=== PATIENT | male | born 1940 | race Caucasian/White ===

== ENCOUNTER 2020-10-13 12:03 | Observation (INO) ==
[2020-10-13] MEDS ORDERED: NS 0.9% 1000 ml BAG 1,000 ML IV ONE ×2 (13:49→15:55)
[2020-10-13 13:53] LABS: ABS Basophils 0.1 10^3/ul (0-0.2); ABS Eosinophils 0.1 10^3/ul (0-0.6); ABS Lymphocytes 1.1 10^3/ul (1.0-4.8); ABS Monocytes 0.9 10^3/ul (0-0.8); ABS Neutrophils 10.4 10^3/ul (1.5-7.7); Eosinophil % 0.8 %; Hematocrit 37 % (42-52); Hemoglobin 12.5 g/dL (14.0-18.0); Mean Corpuscular HGB Conc 33 g/dL (31-36); Mean Corpuscular Hemoglobin 32 pg (27-31); Mean Corpuscular Volume 95 fL (80-94); Mean Platelet Volume 10.4 fL (7.4-10.4); Platelet Count 232 10^3/uL (150-450); Red Blood Count 3.94 10^6 /uL (4.18-5.48); Red Cell Distribution Width 13 % (10-15); White Blood Count 12.7 10^3/uL (3.5-10.8)
[2020-10-13 14:05] LABS: INR 1.1 (0.82-1.09)
[2020-10-13 14:10] LABS: ALT 10 U/L (7-52); AST 13 U/L (13-39); Albumin 3.9 g/dL (3.2-5.2); Albumin/Globulin Ratio 1.6 (1-3); Alkaline Phosphatase 57 U/L (34-104); Anion Gap 8 mmol/L (2-11); BUN/Creatinine Ratio 10.9 (8-20); Blood Urea Nitrogen 18 mg/dL (6-24); CO2 Carbon Dioxide 29 mmol/L (22-32); Calcium 9.7 mg/dL (8.6-10.3); Chloride 103 mmol/L (101-111); EGFR African American 48.9 (>60); EGFR Non-African American 40.4 (>60); Globulin 2.5 g/dL (2-4); Glucose 176 mg/dL (70-100); Potassium 3.9 mmol/L (3.5-5.0); Sodium 140 mmol/L (135-145); Total Protein 6.4 g/dL (6.4-8.9)
[2020-10-13 15:25] LABS: C Reactive Protein < 1.00 mg/L (<8.01)
[2020-10-13] MEDS ORDERED: Piperacillin/Tazobac ADVAN 3.375 GM in NS 0.9% 100 ml BAG 100 ML IV ONE (15:57)
[2020-10-13 17:44] LABS: ABS Lymphocytes 0.8 10^3/ul (1.0-4.8); ABS Monocytes 0.6 10^3/ul (0-0.8); ABS Neutrophils 10.2 10^3/ul (1.5-7.7); Eosinophil % 0.1 %; Hematocrit 37 % (42-52); Hemoglobin 12.3 g/dL (14.0-18.0); Lymphocyte % 6.7 %; Mean Corpuscular HGB Conc 34 g/dL (31-36); Mean Corpuscular Hemoglobin 32 pg (27-31); Mean Corpuscular Volume 95 fL (80-94); Mean Platelet Volume 10.2 fL (7.4-10.4); Platelet Count 203 10^3/uL (150-450); Red Blood Count 3.86 10^6 /uL (4.18-5.48); Red Cell Distribution Width 13 % (10-15); White Blood Count 11.7 10^3/uL (3.5-10.8)
[2020-10-13] MEDS ORDERED: Piperacillin/Tazobac 3.375 GM BAG ONE (17:45)
[2020-10-13] MEDS ORDERED: Calcium Carb (TUMS) 500 mg CHEW TAB PO ONE (18:31)
[2020-10-13] MEDS ORDERED: Albuterol HFA INHALER 8 gm MDI INH PRN (21:07)
[2020-10-13] MEDS ORDERED: Dextrose 50% Syringe 50 ml 25 GM/50 ML SYRINGE IV PUSH PRN (21:08)
[2020-10-13] MEDS: NS 0.9% 1000 ml BAG 1,000 ML IV SCH (23:30)
[2020-10-14 06:26] LABS: BUN/Creatinine Ratio 15.4 (8-20); Calcium 8.5 mg/dL (8.6-10.3); EGFR African American 68.7 (>60); EGFR Non-African American 56.8 (>60); Potassium 4.2 mmol/L (3.5-5.0)
[2020-10-14] MEDS ORDERED: Albuterol HFA INHALER 8 gm MDI INH SCH (09:00)
[2020-10-14] MEDS: NS 0.9% 1000 ml BAG 1,000 ML IV SCH (12:09)
[2020-10-14 15:10] VITALS: BP 131/73
[2020-10-14 16:19] LABS: ABS Eosinophils 0.1 10^3/ul (0-0.6); ABS Lymphocytes 1.3 10^3/ul (1.0-4.8); ABS Monocytes 0.8 10^3/ul (0-0.8); ABS Neutrophils 4.9 10^3/ul (1.5-7.7); Eosinophil % 1.2 %; Hematocrit 29 % (42-52); Hemoglobin 9.8 g/dL (14.0-18.0); Lymphocyte % 17.9 %; Mean Corpuscular HGB Conc 34 g/dL (31-36); Mean Corpuscular Hemoglobin 33 pg (27-31); Mean Corpuscular Volume 96 fL (80-94); Mean Platelet Volume 9.8 fL (7.4-10.4); Platelet Count 159 10^3/uL (150-450); Red Blood Count 2.98 10^6 /uL (4.18-5.48); Red Cell Distribution Width 13 % (10-15); White Blood Count 7.1 10^3/uL (3.5-10.8)
== END 2020-10-14 18:55 | disposition home or self-care (01) ==
LOC: MEDTELE 12:03 → ED 12:03 → MEDTELE 22:51
PROVIDERS: ADMIT Hospitalist; ATTEND Internal Medicine

== ENCOUNTER 2023-06-14 16:06 | Inpatient (IN) ==
[2023-06-14] MEDS ORDERED: Furosemide 40 mg/4 ml IV VIAL IV SLOW PU ONE (16:32)
[2023-06-14 16:50] LABS: Activated Partial Thrombo Time 30.9 seconds (26.0-38.0); INR 1.29 (0.88-1.18)
[2023-06-14 17:01] LABS: ABS Eosinophils 0.2 10^3/uL (0.0-0.5); ABS Lymphocytes 0.7 10^3/uL (1.0-4.8); ABS Monocytes 0.7 10^3/uL (0.0-1.1); ABS Neutrophils 3.3 10^3/uL (1.5-7.6); ABS Nucleated RBC 0.01 10^3/ul; Eosinophil % 3.7 %; Hematocrit 41.9 % (38-53); Hemoglobin 13.9 g/dL (13.2-16.3); Lymphocyte % 14.8 %; Mean Corpuscular Hemoglobin 31.7 pg (27-33); Mean Corpuscular Hgb Conc 33.1 g/dL (31-36); Mean Corpuscular Volume 95.6 fL (80-97); Mean Platelet Volume 9.5 fL (7.5-11.2); Nucleated Red Blood Cells % 0.2 /100 WBC (0.0-0.4); Platelet Count 199 10^3/uL (150-450); Red Blood Count 4.39 10^6/uL (4.06-5.63); Red Cell Distribution Width 13.2 % (12-17); White Blood Count 4.9 10^3/uL (3.6-10.2)
[2023-06-14 17:02] LABS: Albumin 3.5 g/dL (3.2-5.2); Albumin/Globulin Ratio 1.3 (1-3); C Reactive Protein 5.79 mg/L (<8.01); Calcium 9.2 mg/dL (8.6-10.3); Creatinine, Serum 1.13 mg/dL (0.67-1.17); Globulin 2.7 g/dL (2-4); Total Bilirubin 0.5 mg/dL (0.2-1.0); Total Protein 6.2 g/dL (6.4-8.9); eGFR CKD-EPI 65.3 (>60)
[2023-06-14] MEDS ORDERED: Dexamethasone IV 4 MG/ML VIAL 1 ml VIAL IV SLOW PU ONE (17:44)
[2023-06-14] MEDS ORDERED: dilTIAZem 30 MG TAB PO ONE (17:44)
[2023-06-14 18:04] LABS: Urine Appearance Clear; Urine Bilirubin Negative (Negative); Urine Blood Negative (Negative); Urine Color Yellow; Urine Glucose Negative (Negative); Urine Ketones Negative (Negative); Urine Nitrite Negative (Negative); Urine Protein Negative (Negative); Urine Specific Gravity 1.006 (1.002-1.030); Urine Urobilinogen Negative (Negative)
[2023-06-14 18:13] LABS: High Sensitivity Troponin 1 Hr 6 pg/mL (<20)
[2023-06-14] MEDS ORDERED: Albuterol/Ipratropium NEB.SOL (2.5/0.5 MG) 3 ML NEB.SOLN INH ONE (19:17)
[2023-06-14] MEDS ORDERED: Dextrose 50% Syringe 50 ml 25 GM/50 ML SYRINGE IV PUSH PRN (19:51)
[2023-06-14] MEDS ORDERED: cefTRIAXone 1 gm/50 mL D5W 1 GM/50 ML BAG IV SCH (20:00)
[2023-06-14] MEDS: Albuterol/Ipratropium NEB.SOL (2.5/0.5 MG) 3 ML NEB.SOLN INH PRN (20:59)
[2023-06-14 21:24] LABS: Magnesium 1.7 mg/dL (1.9-2.7)
[2023-06-15] MEDS ORDERED: Magnesium Sulfate 2 gm BAG 2 GM/50 ML BAG IVPB ONE (01:44)
[2023-06-15] MEDS: Albuterol/Ipratropium NEB.SOL (2.5/0.5 MG) 3 ML NEB.SOLN INH PRN (02:07)
[2023-06-15] MEDS ORDERED: Metoprolol Tartrate 5 mg VIAL 5 ml VIAL (1 mg/ml) IV ONE (02:19)
[2023-06-15 05:39] LABS: Calcium 8.9 mg/dL (8.6-10.3); Creatinine, Serum 1.26 mg/dL (0.67-1.17); Potassium 3.7 mmol/L (3.5-5.0); eGFR CKD-EPI 57.3 (>60)
[2023-06-15 05:55] LABS: ABS Lymphocytes 0.3 10^3/uL (1.0-4.8); ABS Monocytes 0.1 10^3/uL (0.0-1.1); ABS Neutrophils 4.6 10^3/uL (1.5-7.6); Hematocrit 41.4 % (38-53); Hemoglobin 13.8 g/dL (13.2-16.3); Lymphocyte % 5.6 %; Mean Corpuscular Hemoglobin 31.5 pg (27-33); Mean Corpuscular Hgb Conc 33.3 g/dL (31-36); Mean Corpuscular Volume 94.5 fL (80-97); Mean Platelet Volume 9.7 fL (7.5-11.2); Platelet Count 230 10^3/uL (150-450); Red Blood Count 4.38 10^6/uL (4.06-5.63)
[2023-06-15] MEDS: Cefepime 1 GM in Dextrose 1 GM/50 ML BAG IV SCH ×2 (09:13→20:47)
[2023-06-15] MEDS: Albuterol 2.5mg/3 ml (0.083%) NEB.SOLN INH PRN ×2 (15:28→20:23)
[2023-06-15] MEDS: Tiotropium Brom/Olodaterol MDI (ACUTE) INH SCH (15:41)
[2023-06-15] MEDS: Metoprolol Tartrate 5 mg VIAL 5 ml VIAL (1 mg/ml) IV PRN (16:15)
[2023-06-16] MEDS: Albuterol 2.5mg/3 ml (0.083%) NEB.SOLN INH PRN ×3 (03:27→23:28)
[2023-06-16] MEDS: Phenol 1.4% Throat Spray BTL MT PRN (03:40)
[2023-06-16] MEDS ORDERED: Metoprolol Tartrate 5 mg VIAL 5 ml VIAL (1 mg/ml) IV ONE (04:17)
[2023-06-16] MEDS: Metoprolol Tartrate 5 mg VIAL 5 ml VIAL (1 mg/ml) IV PRN ×2 (04:34→23:25)
[2023-06-16 07:12] LABS: Calcium 8.8 mg/dL (8.6-10.3); Creatinine, Serum 1.19 mg/dL (0.67-1.17); Potassium 3.7 mmol/L (3.5-5.0); eGFR CKD-EPI 61.4 (>60)
[2023-06-16] MEDS: Tiotropium Brom/Olodaterol MDI (ACUTE) INH SCH (08:25)
[2023-06-16] MEDS ORDERED: Potassium Chlor 20 meq TAB.ER PO ONE (09:00)
[2023-06-16] MEDS: Furosemide 20 mg/2 ml IV VIAL IV SLOW PU SCH (09:11)
[2023-06-17] MEDS: Albuterol 2.5mg/3 ml (0.083%) NEB.SOLN INH PRN (06:25)
[2023-06-17] MEDS: Tiotropium Brom/Olodaterol MDI (ACUTE) INH SCH (07:45)
[2023-06-17] MEDS: Metoprolol Tartrate 5 mg VIAL 5 ml VIAL (1 mg/ml) IV PRN (07:51)
[2023-06-17] MEDS: Furosemide 20 mg/2 ml IV VIAL IV SLOW PU SCH (10:02)
[2023-06-17 12:18] LABS: Creatinine, Serum 1.39 mg/dL (0.67-1.17); Potassium 4.4 mmol/L (3.5-5.0); eGFR CKD-EPI 50.9 (>60)
[2023-06-17] MEDS: Levalbuterol HFA INHALER MDI INH PRN ×2 (16:10→20:56)
[2023-06-17] MEDS ORDERED: Benzocaine (plain) Lozenge 15 MG MT ONE (19:43)
[2023-06-18] MEDS: Phenol 1.4% Throat Spray BTL MT PRN ×3 (01:37→09:50)
[2023-06-18] MEDS: Levalbuterol HFA INHALER MDI INH PRN (02:31)
[2023-06-18 06:19] LABS: Creatinine, Serum 1.4 mg/dL (0.67-1.17); Potassium 4.3 mmol/L (3.5-5.0); eGFR CKD-EPI 50.5 (>60)
[2023-06-18] MEDS: Tiotropium Brom/Olodaterol MDI (ACUTE) INH SCH (07:01)
[2023-06-18] MEDS ORDERED: Sulfur Hexaflouride MICROSPHR 25 MG VIAL ONE (09:33)
[2023-06-18] MEDS: Furosemide 20 mg/2 ml IV VIAL IV SLOW PU SCH (09:45)
[2023-06-18 13:16] VITALS: BP 113/79
== END 2023-06-18 15:00 | disposition home or self-care (01) | DRG 309 ==
LOC: ED 16:06 → EDHOLD 16:06 → SUATTDRO 18:38 → MEDTELE 06-15 13:13 → SUATTDRO 06-16 13:00
PROVIDERS: ADMIT Internal Medicine; ATTEND Hospitalist